=== PATIENT | female | born 1960 | race Caucasian/White ===

== ENCOUNTER → 2021-05-15 | Outpatient (CLI) | payer BC ==
[~2021-05-15] MED LIST: ESTR1TAB16 PO; FLUO10CA17 PO; LISI10TA20 PO
--- NOTE | 2021-05-15 12:17 | DIREP ---
PROCEDURE:Digital Screening Mammogram TECHNIQUE:MLO, CC, and XCCL digital images of each breast are provided. Computer Assisted Detection (CAD) was utilized. COMPARISON:[facility], MAMMO BILATERAL SCREENING, 03/27/2019, 12:08 PM. [facility], MAMMO BILATERAL SCREENING, 01/31/2018, 11:08 AM. [facility], MAMMO BILATERAL SCREENING WITH CAD, 04/06/2016, 04:54 PM. [facility], MAMMO BILATERAL SCREENING, 03/19/2015, 03:47 PM. [facility], MAMMO BILATERAL SCREENING, 03/13/2020, 02:29 PM. INDICATIONS:SCREENING BREAST COMPOSITION:Almost entirely fatty. FINDINGS:There are no grouped microcalcifications, masses, or architectural distortions to suggest malignancy. There is no significant change as compared with the previous examination(s). IMPRESSION:No mammographic evidence of malignancy. RECOMMENDATIONS:Routine Screening Mammography per [employer] guidelines. OVERALL FINAL ASSESSMENT:BI-RADS 1 - Negative Mammogram Note: This facility participates in a mammography screening patient reminder system. Dictated by: Luke Hussein M.D. on 05/15/2021 at 12:14 PM
== END | disposition home or self-care (01) ==
LOC: RAD 10:36
PROVIDERS: ATTEND Nurse Practitioner Adult Health
DX: Z12.31 Encounter for screening mammogram for malignant neoplasm of breast (principal)
CPT/HCPCS: 77067